=== PATIENT | male | born 1950 | race Caucasian/White ===

== ENCOUNTER 2018-03-02 12:20 | Emergency (ER) | payer MEDICARE, OTHER, SELFPAY ==
[2018-03-02 12:23] VITALS: BP 97/69; PULSE 53; RESP 16; TEMP 35; O2SAT 94; BMI 34.2
[2018-03-02 12:30] VITALS: BP 94/61; PULSE 52; RESP 16; O2SAT 95
--- NOTE | 2018-03-02 12:59 | EKG12_ITS ---
Test Reason : DIZZINESS Blood Pressure : / mmHG Vent. Rate : 057 BPM Atrial Rate : 057 BPM P-R Int : 200 ms QRS Dur : 152 ms QT Int : 506 ms P-R-T Axes : 028 010 002 degrees QTc Int : 492 ms Sinus bradycardia Right bundle branch block Inferior infarct , age undetermined Abnormal ECG Confirmed by JENNIFER NICHOLE, SANDIE ([id number]), managing editor MOLINA DYE ([id number] on 03/07/2018 3:55:48 PM Referred By: AMY Confirmed By:SANDIE RODRIGUEZ MD
--- NOTE | 2018-03-02 12:59 | CT_ITS ---
STUDY: CT ABDOMEN AND PELVIS WITH CONTRAST REASON FOR EXAM: Male, 67 years old. ABD PAIN, DIAPHORETIC AND VERTIGO RADIATION DOSAGE (If Supplied By Facility): CTDIvol = ( 17.15 ) mGy, DLP = ( 1054.35 ) mGycm TECHNIQUE: Transaxial images were obtained from the dome of the diaphragm to the symphysis pubis with oral contrast. 100ML ml of Isovue 300 contrast was administered. Sagittal and coronal images were reconstructed. Individualized dose optimization techniques were used for this CT. COMPARISON: None. FINDINGS: The visualized lung bases are unremarkable. Heart size is normal. It appears that there is prominent myocardial fat associated with the left ventricle. Clinical correlation recommended. This may associate with chronic cardiac disease. No pericardial effusion. Normal liver. Normal gallbladder and extrahepatic biliary system. Normal spleen. Small splenule is seen anterior and inferior to the spleen. There is diffuse atrophy of the pancreas. Normal bilateral adrenal glands. Normal right kidney. Normal left kidney. Normal visualized stomach. Normal small intestine. Normal colon. The appendix is visualized and appears normal. Mild atherosclerosis of aorta noted. Normal inferior vena cava. Normal retroperitoneum. The urinary bladder is contracted. The wall is thickened but I believe this relates to the state of contraction. Prominent fat extends into the inguinal canals bilaterally. Degenerative spondylosis of the spine is noted with multilevel marginal osteophytes and there is diffuse degenerative disc disease with multilevel vacuum disc phenomenon. CT/Abdomen/Pelvis WITH Contrast IMPRESSION: * No acute abnormality the abdomen or pelvis. * I do note that there appears fat associated with the left ventricle which may associate with chronic heart disease, potentially previous subendocardial infarct but there is no evidence of cardiomegaly or pericardial effusion. * Prominent fat extends into the inguinal canals without evidence of bowel hernia. * See above. Electronically Signed: Yvonne Nelson MD at 15:30 EDT , Service support ,
--- NOTE | 2018-03-02 12:59 | RAD_ITS ---
STUDY: X-RAY CHEST REASON FOR EXAM: Male, 67 years old. Dizziness. Passed out this morning. TECHNIQUE: Single frontal view of the chest. COMPARISON: None. FINDINGS: There is low volume inspiration. There is no demonstrated pleural abnormality. There is marked cardiomegaly. Normal mediastinum and dilip. Normal visualized pulmonary arteries. Normal visualized aortic arch and descending thoracic aorta. Normal visualized thoracic spine. Normal visualized ribs, clavicles, and shoulders. Incidentally noted is gaseous distention of the stomach. RAD/Chest 1 View (Portable) IMPRESSION: Cardiomegaly with low volume inspiration. No acute pathology. Electronically Signed: Albert Hoyt MD at 14:21 EDT , Service support ,
--- NOTE | 2018-03-02 13:01 | ED.VISSUMM ---
- ER Visit Summary Date of Service: 03/02/18 Chief Complaint: Syncopal episode History of Present Illness: The patient is a 67 M no significant past medical history. States he is currently on no medications. Patient was on area [employer]. States he had not eaten since yesterday. He was standing in line around an hour. He had a syncopal event. Prior to the event he denied any headache, chest pain, shortness of breath or abdominal pain. He has had nausea and vomiting x1 since the event. He denies any recent melena. He is on no blood thinners. He denies any recent exertional chest pain or exertional dyspnea. Physical Examination: Older male vital signs he is hypotensive with a pressure 94/61. Heart rate is 52. Pulse ox 95% on room air no signs of hypoxia. H EENT exam atraumatic. Pupils round reactive light. Moist mucous membranes. No signs of trauma to his face or head. No facial droop. Neck nontender. No lymphadenopathy. Lungs clear to auscultation bilaterally. Heart regular rhythm rate about 50 he is bradycardic. No murmur. Chest wall nontender. Abdomen is soft. He has mild tenderness in the upper mid abdomen. There is no pulsatile mass. No signs of obstruction. No hernias or masses. Right upper and right lower quadrants are unremarkable. He is moving all 4 extremities. They are neurovascularly intact. Calves are nontender without edema. Neurologically is awake and alert. Answering questions. Following commands. No focal motor deficits. Test Results: CBC normal. Hemoglobin of white count of 9. Electrolytes unremarkable. Gap of 8. Normal BUN and creatinine. Liver enzymes normal. Lipase normal. UA normal. Except for positive ketones. Troponin normal. Lactic acid normal at 1.5. Chest x-ray showed chronic cardiomegaly but no acute process. CT abdomen pelvis with IV contrast showed no acute abnormality. Read by the radiologist and reviewed by me. Emergency Department Course and Treatment: To be treated with IV fluids. He is going to undergo cardiac workup for his bradycardia. Due to the abdominal tenderness and hypotension and will obtain a CT of the abdomen and pelvis. On repeat exams patient was looking much better after the IV fluids. Currently his blood pressure is 130/80. He states he feels much better. He feels comfortable being discharged home. His abdomen is completely benign. Currently his heart rate is 61 and sinus. He states that his heart rate often runs in the 50s or 60s. Treatment Plan: Patient had a syncopal event after standing for a lengthy period of time. This may be secondary to vasovagal. His hypotension is resolved. Currently his exam is normal. He will be discharged home. To follow-up with his primary care physician. Disposition: Discharge Impression: Acute syncopal event (vasovagal) Acute bradycardia Acute hypotension resolved This note was generated with [employer] dictation software. It may contain incorrect words, spelling, and punctuation that were not noted in review of the chart prior to signing ED Disposition - Plan for ED Patient: Chief Complaint: Dizziness Referrals: Shilpa Main DO [Primary Care Provider] -
[2018-03-02 13:37] LABS: Absolute Lymphocyte Count 0.86 X10^3/ul (0.83-4.51); Absolute Neutrophil Count 8.1 X10^3/uL (2.0-7.7); Basophil# 0.02 X10^3/uL; Basophil% 0.2 % (0-1); Eosinophil# 0.05 X10^3/uL; Eosinophils% 0.5 % (0-5); Hemoglobin 16.4 g/dl (13.0-16.5); Lymphocyte # 0.86 X10^3/ul (4.0); Mean Corp Hgb Conc 34.2 g/gl (32-36); Mean Corpuscular Hgb 30.9 pg (27.0-32.0); Mean Corpuscular Volume 90.6 fL (80-94); Mean Platelet Vol. 11.4 fl (6.2-12.0); Monocyte# 0.55 X10^3/uL; Monocyte% 5.8 % (0-10); Neutrophil # 8.06 X10^3/uL (2.7-7.7); Neutrophil % 84.3 % (47-70); POSITIVE COUNT NO; POSITIVE DIFFERENTIAL NO; POSITIVE MORPHOLOGY NO; Platelet Count 160 K/mm3 (150-450); RBC Distribution Width CV 13.6 % (11.6-14.6); White Blood Count 9.6 K/mm3 (4.4-11.0)
[2018-03-02] MEDS: Ondansetron 4 MG/2 ML Vial IV (13:41)
[2018-03-02 13:43] VITALS: O2SAT 98
[2018-03-02 13:53] LABS: AST(SGOT) 22 U/L (15-37); Alanine Aminotransfer ALT/SGPT 27 U/L (16-61); Albumin, Serum 3.4 g/dL (3.2-5.0); Alkaline Phosphatase 62 U/L (45-117); Anion Gap 8 (5-15); BUN 9 mg/dL (7-18); BUN/Creat Ratio 9.3 RATIO (10-20); Bilirubin, Direct 0.19 mg/dL (0.00-0.30); Chloride 111 mmol/L (98-107); Creatinine, Serum 0.97 mg/dL (0.70-1.30); EST Glomerular Filtration Rate 82 mL/min (>60); Est Glom Filt Rate - Afr Amer 99 mL/min (>60); Estimated Creatinine Clearance 69.54 ml/min; Globulin 3.1 g/dL (2.2-4.2); Glucose 106 mg/dL (74-106); Lipase 117 U/L (73-393); Potassium 4.1 mmol/L (3.5-5.1); Protein, Total 6.5 g/dL (6.4-8.2); Sodium Level 144 mmol/L (136-145)
[2018-03-02 13:58] LABS: Lactic Acid 1.5 mmol/L (0.4-2.0)
[2018-03-02 14:21] VITALS: BP 128/67; PULSE 53; RESP 16; O2SAT 95
[2018-03-02 14:54] VITALS: BP 142/79; PULSE 54; RESP 16; TEMP 35.8; O2SAT 98
[2018-03-02 15:03] LABS: Color, Urine Yellow (Yellow); Glucose, Dipstick Normal (Normal); Ketone-Dipstick 15 mg/dl (Negative); Leukocyte Esterase-Dipstick 25 /ul (Negative); Nitrite-Dipstick Negative (Negative); Occult Blood-Urine 25 /ul (Negative); Protein-Dipstick 30 mg/dl (Negative); Specific Gravity, Urine 1.015 (1.002-1.030); Urine Bilirubin Dipstick Negative (Negative); Urine Clarity Clear (Clear); Urine Urobilinogen 1 mg/dl (Normal)
[2018-03-02 15:10] LABS: Red Blood Cells-Urine 0-5 SEEN /hpf (0-5); White Blood Cells 0-5 SEEN /hpf (0-5)
[2018-03-02 15:11] LABS: Bacteria RARE /hpf (None Seen); Hyaline Cast 0-5 SEEN /lpf (0-5); Mucous, Urine 3+ /hpf (<or=2+); Squamous Epithelial Cells - UA 0-5 SEEN /hpf (0-5)
--- NOTE | 2018-03-02 15:56 | ED.DEP ---
ED Disposition - Plan for ED Patient: Disposition: Home or Assisted Living Chief Complaint: Dizziness Instructions: ED Syncope Vasovagal Referrals: Shilpa Main DO [Primary Care Provider] - 3-5 Days if not improving Additional Instructions: Plenty of fluids and rest. Follow-up with your doctor or return if feeling worse.
[2018-03-02 16:49] VITALS: BP 99/67; BP 99/79; PULSE 67; RESP 14; O2SAT 97
== END 2018-03-02 16:53 | disposition home or self-care (01) ==
PROVIDERS: Emergency Provider Emergency Medicine
DX: R55 Syncope and collapse (principal); R00.1 Bradycardia, unspecified; I95.9 Hypotension, unspecified
CPT/HCPCS: 71045; 74177; 80048; 80076; 81001; 83605; 83690; 84484; 85025; 93005; 96361; 96374; 99285; J7030; Q9967; A4216; J2405

== ENCOUNTER → 2024-03-01 | Outpatient (CLI) | payer MEDICARE, SELFPAY ==
[2024-03-01 19:00] LABS: ALB/GLOB Ratio 0.9 RATIO (0.9-2.4); AST(SGOT) 28 U/L (15-37); Alanine Aminotransfer ALT/SGPT 29 U/L (16-61); Albumin, Serum 3.4 g/dL (3.2-5.0); Alkaline Phosphatase 87 U/L (45-117); Anion Gap 8 (5-15); BUN 11 mg/dL (7-18); BUN/Creat Ratio 9.8 RATIO (10-20); Calcium,Total 8.8 mg/dL (8.5-10.1); Chloride 106 mmol/L (98-107); Cholesterol 120 mg/dL (200); Creatinine, Serum 1.12 mg/dL (0.70-1.30); EST Glomerular Filtration Rate 68 mL/min (>60); Est Glom Filt Rate - Afr Amer 82 mL/min (>60); Globulin 3.7 g/dL (2.2-4.2); Glucose 79 mg/dL (74-106); High Density Lipoprotein 38 mg/dL; PSA,Total - Annual Screen 1.47 ng/mL (0.00-4.00); Potassium 3.9 mmol/L (3.5-5.1); Protein, Total 7.1 g/dL (6.4-8.2); Sodium Level 141 mmol/L (136-145); Triglycerides 107 mg/dL; Very Low Density Lipoprotein 21 mg/dL (5-40)
== END | disposition home or self-care (01) ==
PROVIDERS: PCP Family Medicine; Referring Provider Family Medicine; Visit Provider Family Medicine
DX: I25.810 Atherosclerosis of coronary artery bypass graft(s) without angina pectoris (principal); Z98.890 Other specified postprocedural states; Z12.5 Encounter for screening for malignant neoplasm of prostate
CPT/HCPCS: 36415; 80053; 80061; 84153; G0103

== ENCOUNTER → 2024-08-30 | Outpatient (CLI) | payer MEDICARE, SELFPAY ==
[2024-08-30 14:39] LABS: ALB/GLOB Ratio 1.2 RATIO (0.9-2.4); AST(SGOT) 28 U/L (<=37); Alanine Aminotransfer ALT/SGPT 22 U/L (<=46); Albumin, Serum 3.9 g/dL (3.4-4.8); Alkaline Phosphatase 76 U/L (40-129); Anion Gap 8 (5-15); BUN 18 mg/dL (4-19); BUN/Creat Ratio 20.2 RATIO (10-20); Calcium,Total 8.9 mg/dL (7.6-11.0); Carbon Dioxide 24.5 mmol/L (21.0-32.0); Chloride 104 mmol/L (98-108); Cholesterol 129 mg/dL (<=200); Creatinine, Serum 0.88 mg/dL (0.70-1.20); EST Glomerular Filtration Rate 89 (>60); Globulin 3.2 g/dL (2.2-4.2); Glucose 87 mg/dL (70-99); High Density Lipoprotein 43 mg/dL; Low Density Lipoprotein Calc. 69 mg/dL; Potassium 4.4 mmol/L (3.3-5.1); Protein, Total 7.1 g/dL (5.9-8.4); Sodium Level 137 mmol/L (133-145); Total Bilirubin 0.82 mg/dL (0.00-1.30); Triglycerides 86 mg/dL; Very Low Density Lipoprotein 17 mg/dL (5-40)
== END | disposition home or self-care (01) ==
LOC: BIMLAB 09:12
PROVIDERS: PCP Family Medicine; Referring Provider Family Medicine; Visit Provider Family Medicine
DX: E78.5 Hyperlipidemia, unspecified (principal); Z95.1 Presence of aortocoronary bypass graft
CPT/HCPCS: 36415; 80053; 80061

== ENCOUNTER → 2025-05-09 | Outpatient (CLI) | payer MEDICARE, SELFPAY ==
[2025-05-09 13:16] LABS: AST(SGOT) 26 U/L (<=37); Alanine Aminotransfer ALT/SGPT 25 U/L (<=46); Albumin, Serum 3.9 g/dL (3.4-4.8); Alkaline Phosphatase 71 U/L (40-129); Anion Gap 8 (5-15); BUN 11 mg/dL (4-19); BUN/Creat Ratio 12.0 RATIO (10-20); Calcium,Total 9.1 mg/dL (7.6-11.0); Carbon Dioxide 26.3 mmol/L (21.0-32.0); Chloride 107 mmol/L (98-108); Cholesterol 137 mg/dL (<=200); Globulin 3.1 g/dL (2.2-4.2); Glucose 95 mg/dL (70-99); Low Density Lipoprotein Calc. 78 mg/dL; PSA,Total- Diagnostic 1.51 ng/mL (0.00-4.00); Potassium 4.3 mmol/L (3.3-5.1); Triglycerides 69 mg/dL; Very Low Density Lipoprotein 14 mg/dL (5-40); cholesterol:hdl ratio screen 3.07
== END | disposition home or self-care (01) ==
LOC: MTLAB 10:48
PROVIDERS: PCP Family Medicine; Referring Provider Family Medicine; Visit Provider Family Medicine
DX: R35.0 Frequency of micturition (principal); E78.5 Hyperlipidemia, unspecified
CPT/HCPCS: 36415; 80053; 80061; 84153